=== PATIENT | male | born 1980 | race Two or more races ===

== ENCOUNTER 2023-05-19 16:16 | Emergency (ER) | payer MEDICAID, OTHER ==
[2023-05-19] MEDS: Aspirin 81 MG Tab.Chew PO ONE (16:23)
[2023-05-19 16:37] LABS: BASOPHILS ABSOLUTE AUTO 0.1 x10-3/uL (0.0-0.3); EOSINOPHILS ABSOLUTE AUTO 0.4 x10-3/uL (0.0-0.6); EOSINOPHILS PERCENT AUTO 5.2 % (0.1-6.8); HEMATOCRIT 44.9 % (38.3-50.1); HEMOGLOBIN 15.1 g/dL (12.9-17.7); LYMPHOCYTES ABSOLUTE AUTO 1.8 x10-3/uL (0.5-4.5); LYMPHOCYTES PERCENT AUTO 25.5 % (15.8-45.3); MEAN CORPUSCULAR HEMOGLOBIN 29.7 pg (27.0-33.3); MEAN CORPUSCULAR HGB CONC 33.5 g/dL (28.7-35.3); MEAN CORPUSCULAR VOLUME 88.7 fL (80.8-98.7); MEAN PLATELET VOLUME 7.9 fL (6.7-11.0); MONOCYTES ABSOLUTE AUTO 0.8 x10-3/uL (0.0-1.2); MONOCYTES PERCENT AUTO 11.7 % (5.5-15.2); NEUTROPHILS ABSOLUTE AUTO 4.1 x10-3/uL (1.7-6.9); NEUTROPHILS PERCENT AUTO 56.6 % (40.3-71.8); PLATELET COUNT,PLT 342 x10(3)uL (117-477); RED BLOOD CELL COUNT 5.07 x10(6)uL (3.90-5.90); RED CELL DISTRIBUTION WIDTH 14.3 % (12.4-15.0); WHITE BLOOD CELL COUNT,WBC 7.3 x10-3/uL (3.2-10.1)
[2023-05-19 16:40] LABS: BLOOD UREA NITROGEN,BUN 13 mg/dL (7-18); BUN/CREATININE RATIO 14.4 (9-20); CALCIUM 9.3 mg/dL (8.6-10.2); CARBON DIOXIDE,CO2 31 mmol/L (21-32); CHLORIDE,CL 101 mmol/L (100-110); CREATININE 0.9 mg/dL (0.70-1.30); ESTIMATED GFR 109 mL/min (>60); GLUCOSE RANDOM 89 mg/dL (80-116); POTASSIUM,K 4.1 mmol/L (3.5-5.3); SODIUM,NA 137 mmol/L (135-145)
[2023-05-19] MEDS: Nitroglycerin 0.4 MG Tab.SL SL ONE ×2 (16:40→16:47)
[2023-05-19 16:46] LABS: A/G RATIO 0.8; ALANINE AMINOTRANSFERASE,ALT 27 U/L (12-36); ALBUMIN 3.5 g/dL (3.5-5.2); ALKALINE PHOSPHATASE 89 IU/L (56-112); ASPARTATE AMNIOTRANSFERASE,AST 20 IU/L (5-25); BILIRUBIN TOTAL 0.4 mg/dL (0.1-1.3); PROTEIN TOTAL,TP 7.8 g/dL (6.0-8.0)
[2023-05-19 16:52] LABS: PRO B-TYPE NATRIUR PEPT,BNPPRO 25 pg/mL (<=125)
[2023-05-19 16:56] LABS: TROPONIN I < 4.0 pg/mL (4.0-60.3)
[2023-05-19 18:53] VITALS: BP 97/72; PULSE 68
== END 2023-05-19 18:40 ==
LOC: FB.ED 16:16
DX: R07.2 Precordial pain (principal); F17.210 Nicotine dependence, cigarettes, uncomplicated
CPT/HCPCS: 36415; 71045; 80053; 83880; 84484; 85025; 85379; 93005; 99285; A9270; 93010; 99283